=== PATIENT | male | born 1970 | race Caucasian/White ===

== ENCOUNTER 2017-03-06 05:21 | Emergency (ER) | payer SELFPAY ==
[2015-04-19 09:24] VITALS: BMI 35.9
[~2017-03-06 05:21] MED LIST: BACTRIM DS TABL1 TAB PO; BACTROBAN CREAM15 GM TP; EFFEXOR75 MG PO; HYDROCODONE-APA1 TAB PO; IBUPROFEN800 MG PO; MAXIDE PO; TRIAMTERENE-HCT1 TA1 PO; VIBRAMYCIN 100100 MG PO
== END 2017-03-06 06:18 | disposition home or self-care (01) ==
LOC: D.ER 05:21
DX: M54.2 Cervicalgia (principal); F32.9 Major depressive disorder, single episode, unspecified; I10 Essential (primary) hypertension

== ENCOUNTER 2017-06-20 13:48 | Emergency (ER) | payer SELFPAY ==
[2015-04-19 09:24] VITALS: BMI 35.9
[2017-06-20 14:54] LABS: BASOPHILS 0.5 % (0-2); EOSINOPHILS 4.2 % (0-7); HEMOGLOBIN 14.5 g/dL (13.5-17.5); IMMATURE GRANULOCYTES 0.5 % (0-5); LYMPHOCYTES 35.3 % (15-50); MCHC 33.7 g/dL (31.0-37.0); MCV 94.9 fL (80.0-100.0); MEAN PLATELET VOLUME 9.6 fL (7.4-10.4); NEUTROPHILS 51.5 % (40-80); PLATELET COUNT 219 10x3/uL (130-400); RBC 4.53 10x6/uL (4.20-6.10); RDW 12.6 % (11.5-14.5); WBC 5.7 10x3/uL (4.8-10.8)
[2017-06-20 15:15] LABS: ALBUMIN 3.5 g/dL (3.4-5.0); ALKALINE PHOSPHATASE 70 U/L (46-116); ALT (SGPT) 127 U/L (10-68); BILIRUBIN - TOTAL 0.31 mg/dL (0.2-1.3); CALC OSMOLALITY 278 mosm/kg (275-300); CALCIUM 8.4 mg/dL (8.5-10.1); CARBON DIOXIDE 27.6 mmol/L (21.0-32.0); CHLORIDE - SERUM 103 mmol/L (98-107); GLUCOSE 141 mg/dL (74-106); PROTEIN - SERUM 7.8 g/dL (6.4-8.2); SODIUM 139 mmol/L (136-145); UREA NITROGEN 11 mg/dL (7-18); eGFR NON AFRICAN AMERICAN 85 mL/min (90-120)
[2017-06-20 15:18] LABS: TROPONIN-I < 0.017 ng/mL (0.000-0.060)
== END 2017-06-20 16:03 | disposition home or self-care (01) ==
LOC: D.ER 13:48
PROVIDERS: Emergency Medicine
DX: J20.9 Acute bronchitis, unspecified (principal); I10 Essential (primary) hypertension

== ENCOUNTER 2019-03-18 12:52 | Emergency (ER) | payer MEDICAID ==
[2019-03-18 13:01] VITALS: BMI 41.8
[2019-03-18] MEDS ORDERED: NEURONTIN 300300 MG PO (13:03)
[2019-03-18] MEDS ORDERED: GLUCOPHAGE500 MG PO (13:03)
[2019-03-18] MEDS ORDERED: REXULTI1 MG PO (13:04)
--- NOTE | 2019-03-18 15:11 | NUR ---
DR. GRAY NOTIFIED AND 1:1 SITTER OBSERVATION ORDERED. SITTER AT BEDSIDE. NOTIFIRED CHARGE NURSE AND ATTENDING IN REGARDS TO ASSESSMENT FINDINGS. RESOURCES GIVEN TO PATIENT AND SAFETY PLAN INITIATED.
[2019-03-18 16:18] LABS: UDS - AMPHET NEGATIVE QUAL (NEGATIVE); UDS - BARB NEGATIVE QUAL (NEGATIVE); UDS - BENZO NEGATIVE QUAL (NEGATIVE); UDS - COCAINE NEGATIVE QUAL (NEGATIVE); UDS - OPIATE NEGATIVE QUAL (NEGATIVE); UDS - PCP NEGATIVE QUAL (NEGATIVE); UDS - THC NEGATIVE QUAL (NEGATIVE)
[2019-03-18 16:37] LABS: BASOPHILS 0.2 % (0-2); EOSINOPHILS 1.7 % (0-7); HEMATOCRIT 42.6 % (42.0-54.0); HEMOGLOBIN 14.5 g/dL (13.5-17.5); IMMATURE GRANULOCYTES 0.3 % (0-5); LYMPHOCYTES 29.9 % (15-50); MEAN PLATELET VOLUME 9.6 fL (7.4-10.4); MONOCYTES 9.3 % (2-11); NEUTROPHILS 58.6 % (40-80); PLATELET COUNT 230 10x3/uL (130-400); RBC 4.53 10x6/uL (4.20-6.10); RDW 13.1 % (11.5-14.5)
[2019-03-18 16:40] LABS: APPEARANCE CLEAR (CLEAR); BILIRUBIN NEGATIVE (NEGATIVE); COLOR YELLOW (YELLOW); GLUCOSE NEGATIVE (NEGATIVE); KETONE NEGATIVE (NEGATIVE); NITRITE NEGATIVE (NEGATIVE); PROTEIN NEGATIVE (NEGATIVE); UROBILINOGEN NORMAL (NORMAL)
[2019-03-18 16:47] LABS: ALBUMIN 3.7 g/dL (3.4-5.0); ALKALINE PHOSPHATASE 65 U/L (46-116); ALT (SGPT) 119 U/L (10-68); BILIRUBIN - TOTAL 0.35 mg/dL (0.2-1.3); CALC OSMOLALITY 279 mosm/kg (275-300); CALCIUM 9.1 mg/dL (8.5-10.1); CARBON DIOXIDE 29.8 mmol/L (21.0-32.0); CHLORIDE - SERUM 101 mmol/L (98-107); CREATININE - SERUM 0.9 mg/dL (0.6-1.3); GLUCOSE 114 mg/dL (74-106); MAGNESIUM - SERUM 1.9 mg/dL (1.8-2.4); POTASSIUM - SERUM 3.6 mmol/L (3.5-5.1); PROTEIN - SERUM 7.7 g/dL (6.4-8.2); SODIUM 139 mmol/L (136-145); UREA NITROGEN 15 mg/dL (7-18); eGFR NON AFRICAN AMERICAN > 90 mL/min (90-120)
[2019-03-19 05:12] VITALS: BP 106/57
== END 2019-03-19 05:13 ==
LOC: D.ER 12:52
PROVIDERS: Emergency Medicine
DX: R45.851 Suicidal ideations (principal); R44.0 Auditory hallucinations

== ENCOUNTER 2019-05-17 19:26 | Emergency (ER) | payer MEDICAID ==
[~2019-05-17] VITALS: Ht 180.3 cm; Wt 130.0 kg
[2019-05-17 19:26] VITALS: Ht 180.3 cm; Wt 130.0 kg
[~2019-05-17 19:26] MED LIST changes: +GLUCOPHAGE500 MG PO; +NEURONTIN 300300 MG PO; +REXULTI1 MG PO
[2019-05-17] MEDS ORDERED: LIPITOR20 MG PO (19:35)
[2019-05-17] MEDS ORDERED: DEPAKOTE ER500 MG PO (19:35)
[2019-05-17] MEDS ORDERED: ABILIFY10 MG PO (19:36)
[2019-05-17] MEDS ORDERED: LISINOPRIL-HCT1 EAC7 PO (19:36)
[2019-05-17] MEDS ORDERED: PROPRANOLOL HCL20 MG PO (19:36)
[2019-05-17] MEDS ORDERED: CELEXA20 MG PO (19:37)
[2019-05-17] MEDS ORDERED: TOFRANIL50 MG PO (19:37)
[2019-05-17 22:06] VITALS: BP 124/74
--- NOTE | 2019-05-17 23:17 | NUR ---
DR. GRAY NOTIFIED AND REVIEWD PT'S BEHAVIOR AND ASSESSMENT RESULTS, PT IS A LOW RISK PER DR. GRAY. DR GRAY STATED TO GIVE RESOURCES TO PT AT TIME OF DISCHARGE. NO FURTHER ORDERS AT THIS TIME. RESOURCES REVIEWED WITH PT AND SHE VERBALIZED UNDERSTANDING.
== END 2019-05-17 22:07 | disposition home or self-care (01) ==
LOC: D.ER 19:26
DX: T50.905A Adverse effect of unspecified drugs, medicaments and biological substances, initial encounter (principal); Y92.019 Unspecified place in single-family (private) house as the place of occurrence of the external cause; R61 Generalized hyperhidrosis; R53.81 Other malaise

== ENCOUNTER 2019-07-10 12:26 | Emergency (ER) | payer MEDICAID ==
[~2019-07-10] VITALS: Ht 180.3 cm; Wt 127.3 kg
[~2019-07-10 12:26] MED LIST changes: +ABILIFY10 MG PO; +CELEXA20 MG PO; +DEPAKOTE ER500 MG PO; +LIPITOR20 MG PO; +LISINOPRIL-HCT1 EAC7 PO; +PROPRANOLOL HCL20 MG PO; +TOFRANIL50 MG PO
[2019-07-10 13:17] VITALS: Ht 180.3 cm; Wt 127.3 kg
[2019-07-10] MEDS ORDERED: NAPROSYN500 MG PO (17:43)
[2019-07-10 18:28] VITALS: BP 115/83
== END 2019-07-10 18:23 | disposition home or self-care (01) ==
LOC: D.ER 12:26
DX: S16.1XXA Strain of muscle, fascia and tendon at neck level, initial encounter (principal); S96.911A Strain of unspecified muscle and tendon at ankle and foot level, right foot, initial encounter; V43.52XA Car driver injured in collision with other type car in traffic accident, initial encounter; M25.561 Pain in right knee; E11.9 Type 2 diabetes mellitus without complications; F32.9 Major depressive disorder, single episode, unspecified; K21.9 Gastro-esophageal reflux disease without esophagitis; I10 Essential (primary) hypertension

== ENCOUNTER → 2019-09-04 10:06 | Outpatient (CLI) | payer OTHER ==
[2019-07-10 13:17] VITALS: BMI 39.1
[~2019-09-04 10:06] MED LIST changes: +NAPROSYN500 MG PO
== END | disposition home or self-care (01) ==
LOC: D.RAD 10:00
PROVIDERS: ATTEND Pediatrics
DX: Z02.71 Encounter for disability determination (principal)

== ENCOUNTER 2020-07-22 21:22 | Observation (INO) | payer MEDICAID ==
[~2020-07-22] VITALS: Ht 180.3 cm; Wt 131.8 kg
[2020-07-22 21:34] VITALS: BP 152/98
[2020-07-22 22:01] LABS: BASOPHILS 0.2 % (0-2); EOSINOPHILS 1.9 % (0-7); HEMATOCRIT 43.8 % (42.0-54.0); HEMOGLOBIN 14.4 g/dL (13.5-17.5); IMMATURE GRANULOCYTES 0.5 % (0-5); MCH 31.7 pg (26.0-34.0); MCHC 32.9 g/dL (31.0-37.0); MCV 96.5 fL (80.0-100.0); MEAN PLATELET VOLUME 9.8 fL (7.4-10.4); MONOCYTES 12.8 % (2-11); NEUTROPHILS 51.6 % (40-80); PLATELET COUNT 238 10x3/uL (130-400); RBC 4.54 10x6/uL (4.20-6.10); RDW 12.8 % (11.5-14.5); WBC 9.3 10x3/uL (4.8-10.8)
[2020-07-22 22:11] LABS: CALC OSMOLALITY 268 mosm/kg (275-300); CALCIUM 9.3 mg/dL (8.5-10.1); CARBON DIOXIDE 30.4 mmol/L (21.0-32.0); CHLORIDE - SERUM 99 mmol/L (98-107); CREATININE - SERUM 1.1 mg/dL (0.6-1.3); GLUCOSE 134 mg/dL (74-106); POTASSIUM - SERUM 4.2 mmol/L (3.5-5.1); SODIUM 133 mmol/L (136-145); UREA NITROGEN 15 mg/dL (7-18); eGFR NON AFRICAN AMERICAN 75 mL/min (90-120)
[2020-07-22 22:26] LABS: ALBUMIN 3.5 g/dL (3.4-5.0); ALKALINE PHOSPHATASE 67 U/L (30-120); ALT (SGPT) 70 U/L (10-68); CKMB 2.3 U/L (0.0-3.6); CREATINE KINASE 122 UL (21-232); MAGNESIUM - SERUM 1.7 mg/dL (1.8-2.4); PROTEIN - SERUM 7.8 g/dL (6.4-8.2); TROPONIN-I 0.019 ng/mL (0.000-0.060)
[2020-07-22 22:34] LABS: APTT 26.6 SECONDS (22.8-39.4); INR 0.97 (0.85-1.17); PROTIME 12.9 SECONDS (11.6-15.0)
[2020-07-22 23:41] VITALS: BP 140/88
--- NOTE | 2020-07-23 00:15 | NUR ---
PT GIVEN BLANKETS, DENIES FURTHER NEEDS. PT ON MONITOR. CALL LIGHT IN REACH.
[2020-07-23 00:51] LABS: CKMB 1.5 U/L (0.0-3.6); CREATINE KINASE 109 UL (21-232); TROPONIN-I 0.022 ng/mL (0.000-0.060)
[2020-07-23 01:21] VITALS: BP 134/81
--- NOTE | 2020-07-23 01:32 | NUR ---
PT ADVERTISING SALES CONSULTANT LIGHT, HEAD OF BED LOWERED TO LEVEL OF COMFORT. DENIES FURTHER NEEDS. PT ON MONITOR AND CALL LIGHT IN REACH.
[2020-07-23 03:41] VITALS: BP 139/92
--- NOTE | 2020-07-23 03:41 | NUR ---
ANSWERED PT'S CALL LIGHT, PT STATES HIS IV PUMP IS BEEPING. PT HAD ARM BENT, INFORMED THAT OCCLUDES THE IV FROM INFUSING. VERBALIZES UNDERSTANDING, DENIES FURTHER NEEDS, CALL LIGHT IN REACH.
--- NOTE | 2020-07-23 04:23 | NUR ---
PT RESTING QUIETLY WITH EYES CLOSED. RR EVEN AND UNLABORED, VSS, PT ON MONITOR CALL LIGHT IN REACH.
[2020-07-23 04:41] VITALS: BP 121/67
--- NOTE | 2020-07-23 06:12 | NUR ---
PT RESTING, AWAKES EASILY TO VERBAL STIMULI, DENIES NEEDS. CALL LIGHT IN REACH.
[2020-07-23 09:00] LABS: CKMB 1.3 U/L (0.0-3.6); CREATINE KINASE 96 UL (21-232); TROPONIN-I 0.018 ng/mL (0.000-0.060)
[2020-07-23 10:33] VITALS: BP 121/75
[2020-07-23 11:01] VITALS: Ht 180.3 cm; Wt 131.8 kg
[2020-07-23 12:48] LABS: CKMB 1.5 U/L (0.0-3.6); CREATINE KINASE 111 UL (21-232); TROPONIN-I < 0.017 ng/mL (0.000-0.060)
--- NOTE | 2020-07-23 16:14 | NUR ---
NORMAL SALINE INFUSION STOPPED AT 1400
== END 2020-07-23 16:13 | disposition home or self-care (01) ==
LOC: D.ER 21:22 → D.EDHOLD 23:45 → OBSVTIME 23:45 → D.EDHOLD 07-23 16:13
PROVIDERS: Emergency Medicine; ADMIT Family Medicine; ATTEND Family Medicine
DX: I20.0 Unstable angina (principal); E11.65 Type 2 diabetes mellitus with hyperglycemia; E83.42 Hypomagnesemia; R74.01 Elevation of levels of liver transaminase levels; I10 Essential (primary) hypertension; E78.5 Hyperlipidemia, unspecified; F32.9 Major depressive disorder, single episode, unspecified; F31.9 Bipolar disorder, unspecified; L30.9 Dermatitis, unspecified; M19.90 Unspecified osteoarthritis, unspecified site; G89.29 Other chronic pain; M54.9 Dorsalgia, unspecified; K21.9 Gastro-esophageal reflux disease without esophagitis; Z79.84 Long term (current) use of oral hypoglycemic drugs; E66.9 Obesity, unspecified; R07.89 Other chest pain